=== PATIENT | female | born 1985 | race African-American/Black ===

== ENCOUNTER 2019-02-23 18:07 | Emergency (ER) | payer OTHER ==
[~2019-02-23] VITALS: Ht 170.2 cm; Wt 69.4 kg
[~2019-02-23 18:07] MED LIST: BENADRYL25 MG PO; GLUCOPHAGE1000 MG PO; GLUCOTROL10 MG PO; METFORMIN HCL500 MG PO; NOHOMEMEDICATIONS; ZOFRAN ODT4 MG PO; ZPAK PO
[2019-02-23] MEDS ORDERED: HYDROXYCHLOROQ200 M1 PO (18:49)
[2019-02-23] MEDS ORDERED: SYNTHROID100 MC1 PO (18:49)
[2019-02-23 18:56] LABS: URINE BILIRUBIN NEGATIVE (Negative); URINE BLOOD 2+ (Negative); URINE CLARITY CLEAR; URINE COLOR YELLOW; URINE GLUCOSE-RANDOM* NEGATIVE (Negative); URINE KETONES NEGATIVE (Negative); URINE LEUKOCYTES 1+ (Negative); URINE NITRITE NEGATIVE (Negative); URINE PROTEIN (DIPSTICK) NEGATIVE (Negative); URINE SPECIFIC GRAVITY >= 1.030 (1.005-1.035); URINE UROBILINOGEN 0.2 E.U./dl (0.2-1.0)
[2019-02-23 19:09] LABS: CASTS None Seen /LPF (None Seen); CRYSTALS None Seen /LPF (None Seen); SQUAMOUS 4-10 Moderate /LPF (0-3); URINE RBC 0-2 Rare /HPF (0-2); URINE WBC 6-15 Few /HPF (0-5)
[2019-02-23 19:24] LABS: HEMATOCRIT 33.5 % (37.0-47.0); HEMOGLOBIN 11.2 gm/dL (12.0-15.0); MCH 28.8 pg (26.0-34.0); MCHC 33.4 g/dL (28.0-37.0); MCV 86.2 fL (80.0-100.0); PLATELET COUNT 109 thou/uL (150-400); RBC 3.88 mil/uL (4.20-5.00); RDW 15.7 % (10.5-14.5); WBC 3.3 thou/uL (4.0-11.0)
[2019-02-23 19:36] LABS: CALCIUM 9.5 mg/dL (8.5-10.1); CREATININE 0.6 mg/dL (0.6-1.0); POTASSIUM 4.3 mmol/L (3.5-5.1)
[2019-02-23 20:10] LABS: ABSOLUTE NEUTROPHILS 1.8 thou/uL (1.4-8.2); ATYPICAL LYMPHS 1 %; LARGE PLATELETS OCCASIONAL
[2019-02-23] MEDS ORDERED: KEFLEX500 M1 PO (20:19)
[2019-02-23 23:17] VITALS: BP 110/72
== END 2019-02-23 23:18 | disposition home or self-care (01) ==
LOC: ER 18:07
PROVIDERS: Physician Assistant
DX: O20.0 Threatened abortion (principal); O23.41 Unspecified infection of urinary tract in pregnancy, first trimester; E11.9 Type 2 diabetes mellitus without complications; M32.9 Systemic lupus erythematosus, unspecified; Z90.49 Acquired absence of other specified parts of digestive tract; Z88.6 Allergy status to analgesic agent; Z88.8 Allergy status to other drugs, medicaments and biological substances; Z3A.10 10 weeks gestation of pregnancy